=== PATIENT | female | born 1950 | race Caucasian/White ===

== ENCOUNTER → 2019-08-24 | Outpatient (CLI) | payer MEDICARE, OTHER ==
[~2019-08-24] MED LIST: HCTZ 25MG25 MG PO; LEVOTHYROXINE PO; LIPITOR20 MG PO; MULTIPLE VITAMI1 CAP PO; VITAMIN D 77 MG1 TAB PO
== END ==
LOC: COL.RAD 07:47
DX: M25.551 Pain in right hip (principal)
CPT/HCPCS: J3301

== ENCOUNTER → 2020-11-10 | Outpatient (CLI) | payer MEDICARE, OTHER | LOC: MC.RAD 10:42 | DX: Z12.31 Encounter for screening mammogram for malignant neoplasm of breast (principal) ==

== ENCOUNTER → 2024-03-27 | Outpatient (CLI) | payer MEDICARE, OTHER | LOC: MC.RAD 08:37 | DX: Z12.31 Encounter for screening mammogram for malignant neoplasm of breast (principal) ==